=== PATIENT | male | born 1975 | race Caucasian/White ===

== ENCOUNTER → 2018-08-18 12:52 | Outpatient (CLI) | payer BC, SELFPAY ==
--- NOTE | 2018-08-18 12:55 | CA_ITS ---
PROCEDURE: 2-D M-mode and color Doppler study INDICATIONS FOR THE TEST: Chest pain COPD Heart Murmur Tobacco Smoking+ Palpitations Fatigue+ Syncope Edema Hypertension+Diabetes Mellitus Rheumatic Fever SOB+STOUT Obesity Hyperlipidemia+ Family History HD Additional History STENTS PATIENT INFORMATION HEIGHT: 72 WEIGHT:258 GENDER: Male B/P:126/86 2-D/M-MODE INTERPRETATION: 2-D MEASUREMENTS OBSERVED VALUES IN CMS Right Ventricular Dimension (RVDd) 1.9 Interventricular Septum (Thickness)(IVsd) 1.7 Left Ventricular Internal Dimensions(LVIDd) 4.4 Left Ventricular Posterior Wall (Thickness)(LVPWd) 1.0 Aortic Root 3.0 Aortic Cusp Separation 2.0 Left Atrial Dimensions (LAD) 4.4 2D 1. Left atrium is mildly enlarged, left ventricle is normal size, mild concentric left ventricular hypertrophy, visually estimated ejection fraction 50% with no regional wall motion abnormality. 2. The right atrium and right ventricle are normal size and contractility. 3. The aortic valve is thickened and calcified leaflet continue to display mobility. 4. The mitral and tricuspid valvular grossly normal. 5. The pulmonic valve is poorly present. 6. No significant pericardial effusion noted. DOPPLER INTERROGATION: Doppler interrogation of the aortic, mitral and tricuspid valvular presence of mild mitral and tricuspid regurgitation, calculated right ventricular systolic pressure is 36 mmHg consistent with mild pulmonary hypertension, grade 1 diastolic dysfunction seen with tissue Doppler evidence of raised left atrial pressure. CONCLUSION: 1. Mildly enlarged left atrium, normal left ventricular size, mild concentric left ventricular hypertrophy, visually estimated ejection fraction of 50% with no regional wall motion abnormality, grade 1 diastolic dysfunction seen with tissue Doppler evidence of raised left atrial pressure. 2. Mild mitral and tricuspid regurgitation, calculated right ventricular systolic pressure is 36 mmHg consistent with mild pulmonary hypertension. 3. No significant pericardial effusion noted.
== END ==
PROVIDERS: PCP Emergency Medicine; Visit Provider Internal Medicine
DX: I25.10 Atherosclerotic heart disease of native coronary artery without angina pectoris (principal); E78.5 Hyperlipidemia, unspecified; I10 Essential (primary) hypertension; R53.83 Other fatigue
CPT/HCPCS: 93306

== ENCOUNTER → 2018-09-06 18:48 | Outpatient (CLI) | payer BC, SELFPAY | PROVIDERS: PCP Emergency Medicine; Visit Provider Physician Assistant | DX: R06.02 Shortness of breath (principal) ==

== ENCOUNTER → 2018-09-16 18:40 | Outpatient (CLI) | payer BC, SELFPAY | PROVIDERS: PCP Emergency Medicine; Visit Provider Physician Assistant | DX: R06.02 Shortness of breath (principal); R40.0 Somnolence; R53.83 Other fatigue; I10 Essential (primary) hypertension; I51.9 Heart disease, unspecified; I27.20 Pulmonary hypertension, unspecified | CPT/HCPCS: 95806 ==

== ENCOUNTER → 2019-09-14 10:51 | Outpatient (CLI) | payer BC, SELFPAY ==
[2019-09-14 11:12] LABS: Basophils # 0.1 K/mm3 (0-0.2); Basophils % 1.2 % (0.1-2.0); Eosinophils # 0.8 K/mm3 (0.0-0.4); Eosinophils % 7.7 % (0.1-12.0); Hematocrit 45.4 % (42.0-52.0); Hemoglobin 15.3 g/dL (14.1-18.0); Lymphocytes # 2.4 K/mm3 (0.7-4.5); Lymphocytes % 21.7 % (10-50); Mean Corpuscular HGB Conc 33.6 g/dL (31.8-35.4); Mean Corpuscular Hemoglobin 33.5 pg (27.0-31.2); Mean Corpuscular Volume 99.6 fl (80-94); Mean Platelet Volume 8.2 fl (7.4-10.4); Monocytes # 0.6 K/mm3 (0.1-1.0); Monocytes % 5.3 % (1.7-9.3); Neutrophils % 64.1 % (37.0-80.0); Platelet Count 234 K/mm3 (142-424); Red Blood Count 4.56 M/mm3 (4.60-6.20); White Blood Count 10.9 K/mm3 (4.8-10.8)
== END ==
PROVIDERS: Visit Provider Urology
DX: I10 Essential (primary) hypertension (principal); I25.10 Atherosclerotic heart disease of native coronary artery without angina pectoris
CPT/HCPCS: 36415; 85025

== ENCOUNTER → 2019-09-29 08:35 | Outpatient (CLI) | payer BC, SELFPAY ==
--- NOTE | 2019-09-29 08:38 | CA_ITS ---
APPROVED REPORT Package Sealer Machine: CT Laterality: Bilateral Study Quality: Good Indications: family H/O CEA-mother Risk Factors Hypertension: Family History: Doppler Spectral Velocity Analysis ECA (R) 87.70/ cm/s ECA (L) 114.00/ cm/s dICA (R) 69.50/29.70 cm/s dICA (L) 79.20/33.30 cm/s Tomasz (R) 59.00/20.60 cm/s Tomasz (L) 81.70/32.70 cm/s pICA (R) 74.40/22.30 cm/s pICA (L) 89.90/27.00 cm/s dCCA (R) 79.80/24.50 cm/s dCCA (L) 93.30/33.40 cm/s pCCA (R) 111.00/19.60 cm/s pCCA (L) 100.00/30.00 cm/s Vert (R) 40.90/ cm/s Vert (L) 40.30/ cm/s ICA/CCA 0.93 ICA/CCA 0.96 Findings Duplex evaluation demonstrates stenosis of the right proximal internal carotid artery <20% with PSV <140 cm/sec, EDV <100 cm/sec, and IC/CC Ratio <4.0. Duplex evaluation demonstrates stenosis of the left proximal internal carotid artery <20% with PSV <140 cm/sec, EDV <100 cm/sec, and IC/CC Ratio <4.0. Duplex evaluation demonstrates antegrade flow of the bilateral Vertebral Arteries. Conclusion No increased velocities to suggest hemodynamically significant stenosis in either internal carotid artery. Electronically signed by : Phil Girard MD 09/29/2019 16:53:54
== END ==
PROVIDERS: PCP Emergency Medicine; Visit Provider Urology
DX: R42 Dizziness and giddiness (principal); I25.10 Atherosclerotic heart disease of native coronary artery without angina pectoris; F17.200 Nicotine dependence, unspecified, uncomplicated
CPT/HCPCS: 93880

== ENCOUNTER 2020-05-13 19:43 | Emergency (ER) | payer BC, SELFPAY ==
[2020-05-13 20:05] VITALS: BP 132/81; PULSE 80; RESP 20; TEMP 37; O2SAT 98; BMI 31.7
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
[2020-05-13 21:01] LABS: Apearance,Urine Clear (Clear); Color,Urine Yellow (Yellow); PH,Urine 5.5 (5.0-8.5)
[2020-05-13 21:02] LABS: Bilirubin,Urine Negative (Negative); Blood, Urine Negative (Negative); Glucose,Urine (UA) Negative (Negative); Ketones,Urine TRACE (Negative); Protein,Urine Negative (Negative); UTC Leukocyte Esterase,Urine Negative (Negative); UTC Nitrate,Urine Negative (Negative); Urobilinogen,Urine 1 EU/dl (0.2)
--- NOTE | 2020-05-13 21:06 | PC.NURSE ---
PATIENT SENT TO ER AT THIS TIME PER Sari MICHELLE APRN; REPORT GIVEN TO Suma RUCKER RN
[2020-05-13 21:14] LABS: POC Glucose,Bedside 89 (70-110)
[2020-05-13 21:15] VITALS: BP 173/94; PULSE 76; RESP 16; TEMP 37.3; O2SAT 96; BMI 31.7
[2020-05-13 21:23] VITALS: BP 173/94; PULSE 76; RESP 18; TEMP 37.3; O2SAT 96
[2020-05-13 21:53] LABS: Basophils # 0.2 K/mm3 (0-0.2); Eosinophils # 0.9 K/mm3 (0.0-0.4); Eosinophils % 6.5 % (0.1-12.0); Hematocrit 47.1 % (42.0-52.0); Hemoglobin 15.6 g/dL (14.1-18.0); Lymphocytes # 3.3 K/mm3 (0.7-4.5); Lymphocytes % 23.1 % (10-50); Mean Corpuscular HGB Conc 33.1 g/dL (31.8-35.4); Mean Corpuscular Hemoglobin 33.7 pg (27.0-31.2); Mean Corpuscular Volume 101.7 fl (80-94); Mean Platelet Volume 8.4 fl (7.4-10.4); Monocytes # 0.8 K/mm3 (0.1-1.0); Monocytes % 5.5 % (1.7-9.3); Neutrophils # 9.1 K/mm3 (1.8-7.8); Neutrophils % 63.8 % (37.0-80.0); Platelet Count 285 K/mm3 (142-424); Red Blood Count 4.63 M/mm3 (4.60-6.20); Red Cell Distribution Width 13.5 % (11.5-17.5); White Blood Count 14.2 K/mm3 (4.8-10.8)
[2020-05-13 22:01] LABS: Alanine Aminotransferase 26 U/L (12-78); Albumin Level 4.1 g/dl (3.5-5.0); Albumin/Globulin Ratio 1.5 (1.1-1.8); Alkaline Phosphatase 98 U/L (38-126); Anion Gap 11.9 mEq/L (5-15); Aspartate Amino Transferase 31 U/L (17-59); Bilirubin,Total 0.4 mg/dl (0.2-1.3); Blood Urea Nitrogen 20 mg/dl (9-20); Calcium 9.1 mg/dl (8.4-10.2); Carbon Dioxide 29 mmol/L (22.0-30.0); Chloride 101 mmol/L (98-107); Creatinine Clearance Estimated 137 mL/min (50-200); Estimated Glomerular Filt Rate 80 ml/min (>60); GFR (African American) 97 ML/MIN (>60); Globulin 2.8 g/dL (1.3-3.2); Glucose 91 mg/dl (74-100); Potassium 3.9 mmoL/L (3.5-5.1); Sodium 138 mmol/L (136-145); Total Protein,Serum 6.9 g/dl (6.3-8.2)
[2020-05-13 22:32] VITALS: BP 131/76; PULSE 63; RESP 16; TEMP 37.2; O2SAT 96
== END 2020-05-13 22:34 | disposition home or self-care (01) ==
LOC: UTC 21:01 → ER 21:11
PROVIDERS: Nurse Practitioner Family; Emergency Provider Student in an Organized Health Care Education/Training Program; PCP Emergency Medicine
DX: S23.41XA Sprain of ribs, initial encounter (principal); X50.1XXA Overexertion from prolonged static or awkward postures, initial encounter; Y92.89 Other specified places as the place of occurrence of the external cause; I25.10 Atherosclerotic heart disease of native coronary artery without angina pectoris; I10 Essential (primary) hypertension; E78.5 Hyperlipidemia, unspecified; F17.210 Nicotine dependence, cigarettes, uncomplicated
CPT/HCPCS: 80053; 81003; 82962; 85025; 96374; 99282

== ENCOUNTER → 2020-10-03 14:45 | Outpatient (CLI) | payer BC, SELFPAY ==
[2020-10-03 15:56] LABS: Alanine Aminotransferase 33 U/L (12-78); Albumin Level 4.6 g/dl (3.5-5.0); Alkaline Phosphatase 117 U/L (38-126); Aspartate Amino Transferase 35 U/L (17-59); Bilirubin,Indirect 0.4 mg/dL (0.0-0.9); Bilirubin,Total 0.4 mg/dl (0.2-1.3); Bilirubin,Unconjugated 0.4 mg/dL (0.0-1.1); Chol/HDL Ratio 3.2 (1-3.5); Cholesterol 121 mg/dl (140-200); HDL Cholesterol 38 mg/dl (40-60); Total Protein,Serum 7.7 g/dl (6.3-8.2); Triglycerides 108 mg/dl (30-150); VLDL Cholesterol 22 mg/dL (0-40)
[2020-10-03 16:07] LABS: Direct LDL Cholesterol 68.36 mg/dL (100-129)
== END ==
PROVIDERS: Visit Provider Urology
DX: I11.9 Hypertensive heart disease without heart failure (principal); E11.9 Type 2 diabetes mellitus without complications
CPT/HCPCS: 36415; 80061; 80076

== ENCOUNTER → 2021-05-01 08:03 | Outpatient (CLI) | payer BC, SELFPAY ==
--- NOTE | 2021-05-01 08:06 | CA_ITS ---
APPROVED REPORT EXAM: Comprehensive 2D, Doppler, and color-flow Echocardiogram Bow Making Machine Operator: Qiana Lindsay RVT Ht: 6 ft 0 in Wt: 235lbs BSA: 2.28 BP: 120/67 mmHg Indications: SOA,STENT,CAD,SMOKER,FATIGUE,COPD,HTN,HLD,CARMEN 2D Dimensions LVOT 2.07 cm (M/F) 1.5-2.5 LA Volume 31.60 mL LA Volume Index 13.85 mL/m2 (M/F) 16-34 M-Mode Dimensions RVDd 2.77 cm (0.9-2.6) LA Diam 3.85 cm (1.9-4.0) LVDd 4.74 cm (3.5-5.7) Ao Diam 2.88 cm (2.0-3.7) LVDs 3.30 cm (3.5-5.7) IVSd 0.27 cm (0.6-1.1) PWd 1.06 cm (0.6-1.1) EF (Teich) 57.80% FS 30.40% EDV (Teich) 104.40 mL TAPSE 2.30 (<1.7) ESV (Teich) 44.10 mL LV Diastology E Decel Time 273.00 (160-240 msec) E/A Ratio 1.6 MED E' 6.50 (< 7 cm/sec) E'/MED E' Ratio 17.58 (>14) LAT E' 16.20 (<10 cm/sec) E/LAT E' Ratio 7.06 (>14) Aortic Valve AO Peak GR. 7.90 mmHg Mitral Valve MV E Max Boris. 114.00 (40-130 cm/s) MV A Velocity 71.00 (40-130 cm/s) E/A Ratio 1.61 MV Decel. Time 273.00 (160-240 ms) MV PHT 80.00 ms Pulmonary Valve PV Peak Velocity 90.00 (50-150 cm/s) Tricuspid Valve TR P. Velocity 255.00 cm/s RAP Estimate 10.00 mmHg RVSP 36.00 mmHg Left Ventricle Left atrium is mildly enlarged, left ventricle is normal size, mild concentric left ventricular hypertrophy, visually estimated ejection fraction 55% with no regional wall motion abnormality. Diastolic parameters are inconclusive in the study. Right Ventricle Right atrium and right ventricle are mildly enlarged with normal contractility. Aortic Valve Aortic valve is minimally thickened and fibrosed, there is no aortic stenosis or aortic insufficiency. Mitral Valve Mitral valve is grossly normal, there is trace mitral regurgitation. Tricuspid Valve Tricuspid valve is grossly normal, there is trace tricuspid regurgitation, tricuspid regurgitation jet velocity is inadequate for calculation of the right ventricular systolic pressure. Pulmonic Valve Pulmonic valve is poorly visualized. Great Vessels Aortic root is normal size. Inferior vena cava is normal size with normal inspiratory collapse. Pericardium No significant pericardial effusion noted. Conclusion 1. Mild biatrial enlargement, normal left ventricular size, mild concentric left ventricular hypertrophy, visually estimated ejection fraction 55% with no regional wall motion abnormality, diastolic parameters are inconclusive in the study. 2. Mildly enlarged right ventricle with normal contractility. 3. Trace mitral and tricuspid regurgitation. 4. Inferior vena cava is normal size with normal inspiratory collapse. Electronically signed by : Melo Vinson MD 05/02/2021 12:10:34
== END ==
LOC: RT 08:06
PROVIDERS: PCP Emergency Medicine; Visit Provider Urology
DX: I25.10 Atherosclerotic heart disease of native coronary artery without angina pectoris (principal); I10 Essential (primary) hypertension; I27.20 Pulmonary hypertension, unspecified
CPT/HCPCS: 93306

== ENCOUNTER → 2022-10-20 10:38 | Outpatient (CLI) | payer BC, SELFPAY ==
[2022-10-20 12:22] LABS: Alanine Aminotransferase 27 U/L (12-78); Alkaline Phosphatase 114 U/L (38-126); Aspartate Amino Transferase 26 U/L (17-59); Bilirubin,Indirect 0.4 mg/dL (0.0-0.9); Bilirubin,Total 0.4 mg/dl (0.2-1.3); Bilirubin,Unconjugated 0.5 mg/dL (0.0-1.1); Cholesterol 101 mg/dl (140-200); HDL Cholesterol 34 mg/dl (40-60); Total Protein,Serum 6.6 g/dl (6.3-8.2); Triglycerides 84 mg/dl (30-150); VLDL Cholesterol 17 mg/dL (0-40)
[2022-10-20 12:33] LABS: Direct LDL Cholesterol 57.78 mg/dL (100-129)
== END ==
PROVIDERS: PCP Family Medicine; Visit Provider Nurse Practitioner
DX: I25.10 Atherosclerotic heart disease of native coronary artery without angina pectoris (principal); I10 Essential (primary) hypertension; E78.2 Mixed hyperlipidemia; F17.200 Nicotine dependence, unspecified, uncomplicated
CPT/HCPCS: 36415; 80061; 80076

== ENCOUNTER 2023-11-24 13:44 | Outpatient (CLI) | payer BC, SELFPAY ==
--- NOTE | 2023-11-24 13:44 | CA_ITS ---
FINAL REPORT TECHNIQUE: Color Doppler, duplex Doppler and castro scale sonography of the bilateral neck vasculature was performed. Velocities were measured in the carotid arteries. Stenosis evaluation based on velocity criteria. CLINICAL HISTORY: Family hx of marita, CAD, Smoker COMPARISON: None FINDINGS: The peak systolic velocity of the right common carotid artery is 88 cm/sec and internal carotid artery 91 cm/sec. The diastolic velocity in the internal carotid artery is 28 cm/sec. The ICA/CCA ratio is 1.4. Visually, a small amount of plaque is seen. These findings are consistent with less than 50% stenosis. The external carotid artery is patent. The right vertebral artery is patent with antegrade flow. The peak systolic velocity of the left common carotid artery is 92 cm/sec and internal carotid artery 108 cm/sec. The diastolic velocity in the internal carotid artery is 37 cm/sec. The ICA/CCA ratio is 1.3. Visually, a small amount of plaque is seen. These findings are consistent with less than 50% stenosis. The external carotid artery is patent. The left vertebral artery is patent with antegrade flow. IMPRESSION: No evidence of significant carotid stenosis. Bilateral patent vertebral arteries. If indicated, CTA or MRA could further evaluate. Reviewed, Interpreted and Dictated by Sidney Hay III, MD Transcribed by Valarie Colby Authenticated and [facility]
== END 2023-11-24 23:59 | disposition home or self-care (01) ==
PROVIDERS: PCP Family Medicine; Visit Provider Nurse Practitioner
DX: R93.89 Abnormal findings on diagnostic imaging of other specified body structures (principal)
CPT/HCPCS: 93880

== ENCOUNTER 2024-12-06 14:31 | Outpatient (CLI) | payer OTHER, SELFPAY ==
[2024-12-06 15:25] LABS: Basophils # 0.1 K/mm3 (0-0.2); Basophils % 1.2 % (0.1-2.0); Eosinophils # 0.6 Kmm3 (0.0-0.4); Hematocrit 45.2 % (42.0-52.0); Immature Granulocytes # 0.03 10^3uL; Immature Granulocytes % 0.3 %; Lymphocytes # 2.3 K/mm3 (0.7-4.5); Lymphocytes % 22.6 % (10-50); Mean Corpuscular HGB Conc 35.4 g/dL (31.8-35.4); Mean Corpuscular Volume 98.9 fl (80-94); Mean Platelet Volume 10.4 fl (7.4-10.4); Monocytes # 0.6 K/mm3 (0.1-1.0); Monocytes % 5.9 % (1.7-9.3); Neutrophils # 6.6 K/mm3 (1.8-7.8); Nucleated Red Blood Cells # 0 10^3/uL; Nucleated Red Blood Cells % 0 %; Platelet Count 255 K/mm3 (142-424); Red Blood Count 4.57 M/mm3 (4.60-6.20); Red Cell Distribution Width-SD 44.1 fL; White Blood Count 10.2 K/mm3 (4.8-10.8)
[2024-12-06 15:51] LABS: Alanine Aminotransferase 25 U/L (12-78); Albumin Level 4.3 g/dl (3.5-5.0); Alkaline Phosphatase 100 U/L (38-126); Anion Gap 9.8 mEq/L (5-15); Aspartate Amino Transferase 26 U/L (17-59); Bilirubin,Direct 0.2 mg/dl (0.0-0.4); Bilirubin,Indirect 0.3 mg/dL (0.0-0.9); Bilirubin,Total 0.5 mg/dl (0.2-1.3); Bilirubin,Unconjugated 0.3 mg/dL (0.0-1.1); Blood Urea Nitrogen 17 mg/dl (9-20); Calcium 9.4 mg/dl (8.4-10.2); Carbon Dioxide 29 mmol/L (22.0-30.0); Chloride 100 mmol/L (98-107); Chol/HDL Ratio 2.7 (1-3.5); Cholesterol 96 mg/dl (140-200); Estimated Glomerular Filt Rate 102 ml/min (>60); GFR (African American) 123 ML/MIN (>60); Glucose 96 mg/dl (74-100); HDL Cholesterol 36 mg/dl (40-60); Magnesium 1.8 mg/dl (1.6-2.3); Potassium 3.8 mmoL/L (3.5-5.1); Sodium 135 mmol/L (136-145); Total Protein,Serum 6.7 g/dl (6.3-8.2); Triglycerides 94 mg/dl (30-150); VLDL Cholesterol 19 mg/dL (0-40)
[2024-12-06 16:01] LABS: Direct LDL Cholesterol 50.64 mg/dL (100-129)
[2024-12-06 16:22] LABS: Thyroid Stimulating Hormone 1.71 uIU/mL (0.465-4.68)
[2024-12-06 18:07] LABS: Free T4 (Free Thyroxine) 0.98 ng/dl (0.78-2.19)
== END 2024-12-06 23:59 | disposition home or self-care (01) ==
PROVIDERS: PCP Nurse Practitioner Family; Visit Provider Internal Medicine
DX: R06.02 Shortness of breath (principal); R53.83 Other fatigue; I11.9 Hypertensive heart disease without heart failure; I25.10 Atherosclerotic heart disease of native coronary artery without angina pectoris
CPT/HCPCS: 36415; 80048; 80061; 80076; 83735; 84439; 84443; 85025